=== PATIENT | female | born 1950 | race Caucasian/White ===

== ENCOUNTER 2016-09-05 15:10 | Emergency (ER) | payer MEDICARE ==
[2016-09-05 16:45] LABS: ABSOLUTE NEUTROPHIL COUNT 7.3 K/mm3 (1.8-7.7); BASO # 0.1 K/mm3 (0.0-0.2); BASO % 0.5 % (0.2-1.0); EOS # 0.1 (0.0-0.5); HEMATOCRIT 43.6 % (37.0-47.0); HEMOGLOBIN 14.9 gm/l (12.0-16.0); IMM NEUT% 0.4 % (0-1); LYMPH % 11.1 % (15-45); MEAN CELL VOLUME 89.2 fl (81.0-99.0); MEAN CORPUSCULAR HEMOGLOBIN 30.5 pg (27.0-31.0); MEAN CORPUSCULAR HGB CONC 34.2 g/dl (33.0-37.0); MEAN PLATELET VOLUME 10.1 fl (7.4-10.4); MONO # 0.8 (0.0-0.8); MONO % 8.8 % (4-12); NEUT % 78.2 % (43-75); PLATELET COUNT 234 K/mm3 (130-400); RED CELL DISTRIBUTION WIDTH 11.9 % (11.5-14.5)
[2016-09-05 17:01] LABS: ALB/GLOB RATIO 1.8 (>1.0); ALBUMIN 4.4 gm/dL (3.5-5.7); CALCIUM 9.6 mg/dL (8.6-10.3)
[2016-09-05 17:05] LABS: TROPONIN I < 0.01 ng/ml (0.0-0.06)
[2016-09-05 17:09] LABS: CKMB ISOENZYME 1.7 ng/ml (0.6-6.3)
--- NOTE | 2016-09-05 17:52 | RAD ---
Exam: Two-view chest COMPARISON: 08/15/2015 and 07/10/2012 INDICATION: Anxiety and chest pain for 2 days. FINDINGS: PA and lateral views of the chest were obtained. Cardiac silhouette is within normal limits and stable. Mild coarsening of the bronchovascular markings is again noted. There is no focal airspace disease or pleural effusion. A few bridging osteophytes are noted within the thoracic spine. Bones of the chest wall otherwise unremarkable. IMPRESSION: No acute pulmonary process.
== END 2016-09-05 19:18 | disposition home or self-care (01) ==
LOC: ED 15:10
DX: R07.9 Chest pain, unspecified (principal); R00.1 Bradycardia, unspecified